=== PATIENT | female | born 1955 | race Caucasian/White ===

== ENCOUNTER 2024-11-18 10:39 | Outpatient (AMB) | payer BC, SELFPAY ==
--- OUTSIDE RECORDS SUMMARY | 2024-02-13 13:59 | XMS_ITS | Encounter Summary ---
Author Organization Meetup Address [address] [place] [address] Care Team Providers Care Casual Shoe Inspector Name Role Phone Zhanna Fraire MD Primary Care Provider Encounter Details Date Type Department Care Team (Latest Contact Info) Description 02/13/2024 1:59 PM EDT Hospital Encounter TH HISTORIC ENCOUNTERS [facility] ONLY Zhanna Fraire MD [address] [facility] [address] [place] [address] Pain in left hip Social History Tobacco Use Types Packs/Day Years Used Date Smoking Tobacco: Former Smokeless Tobacco: Never Alcohol Use Standard Drinks/Week Comments Yes 0 (1 standard drink = 0.6 oz pur e alcohol) Housing Instability Answer Date Recorde d Are you worried that in the next 2 months you may not have stable housing? Patient declined 08/05/2024 Food Access & Nutrition Answer Date Rec orded Do you have access to a vari ety of food including fruits and vegetables? Yes 08/05/2024 Access to Healthcare Answer Date Record ed Within the last 3 months, conchis schwab many times did you visit the emergency department for your medical care? 0 08/05/2024 Health Literacy Answer Date Recorded How often do you need to hav e someone help you when you read instructions, pamphlets, or other written material from your doctor or pharmacy? Rarely 08/05/2024 Caregiver: How often do you need to have someone help you when you read instructions, pamphlets, or other written material from your doctor or pharmacy? Not on file 08/05/2024 Financial Risk Answer Date Recorded How hard is it for you to pa y for the very basics like food, housing, medical care, and air conditioning / heating? Not very hard 08/05/2024 Transportation Answer Date Recorded Has the lack of transportati on kept you from meetings, work, or from getting things needed for daily living? No Has the lack of transportati on kept you from medical appointments or from getting medications? No 08/05/2024 Social Isolation Answer Date Recorded How often do you feel lonely or isolated from th ose around you? Never 08/05/2024 Food Risk Answer Date Recorded Within the past 12 months we worried whether our food would run out before we got money to buy more. Never true 08/05/2024 Within the past 12 months th e food we bought just didn't last and we didn't have money to get more. Never true 08/05/2024 Dependent Care Answer Date Recorded Do you need help finding or paying for care for your loved ones. For example, child day care center worker or elderly care for an older adult? No 08/05/2024 Education Answer Date Recorded Do you think completing more education or training, like finishing a GED, going to college, or learning a trade, would be helpful for you? N/A 08/05/2024 Employment and Income Answer Date Recor ded During the last four weeks, have you been actively looking for work? No 08/05/2024 Living Situation Answer Date Recorded What is your living situation? 0 08/05/2024 Comments Unknown Sex and Gender Information Value Date Recorded Sex Assigned at Female 03/24/2024 1:41 PM EST Legal Sex Female 10:20 AM EST Gender Identity Female 03/24/2024 1:41 PM EST Sexual Orientation Choose not to disclose 2023 1:41 PM EST documented as of this encounter Plan of Treatment Upcoming Encounters Date Type Department Care Team (Late st Contact Info) Description 12/20/2024 2:00 PM EDT Office Visit Internal Medicine - [address] [place] [address] Zhanna Fraire MD [address] [place] [address] [address] [place] [address] (work) documented as of this encounter Procedures Procedure Name Priority Date/Time Associated Diagnosis Comments CR HIP UNI 2-3 VIEWS LT Routine 02/13/2024 2:34 PM EDT Pain in left hip documented in this encounter Results * CR HIP UNI 2-3 VIEWS LT (02/13/2024 2:34 PM EDT) Anatomical Region Laterality Modality Radiographic Nikki ging 02/13/2024 2:03 PM EDT Narrative 02/13/2024 2:34 PM EDT [facility] Diagnostic Imaging Department [address] [place] [address] Patient: DONNY BERNSTEIN Tonia /Age/Sex: 1955 - 68 - F Unit#: [id number] Location/Status: SPDIGEN/REG CLI Mnemonic/Ordering [facility] Ordering Physician: ZHANNA FRAIRE MD CR Hip Uni 2-3 Views LT - 02/13/24 - [id number] Report Status:Signed History: Left hip pain. Comparison: CT abdomen/pelvis 01/01/07 Findings: An AP view of the pelvis to include both hips and AP and frog-leg lateral views of the left hip are submitted. The hip joints are well-maintained. Femoral head contours are smooth. No fractures or osseous destructive lesions are seen. There is no significant arthritic change. A 6 mm amorphous calcification is seen within the soft tissues adjacent to the cephalad aspect of the greater trochanter of the left hip, suggesting calcific bursitis. This new from the 2006 study. The pelvic bones are intact. Osteitis condensans pubis is noted. The sacroiliac joints are well-maintained. Lumbar disc and facet degenerative changes are partially imaged. Impression: Calcific bursitis left hip. [id number] Dictating Physician: LEXIS AGUILAR MD Electronically Signed by: LEXIS AGUILAR MD Dic Date/Time: 02/13/24 1432 Sign date/Time: 02/13/24 143 Procedure Note Lexis Aguilar MD - 03/09/2024 [facility] Diagnostic Imaging Department [address] [place], [place] [id number] Patient: DONNY BERNSTEIN Tonia /Age/Sex: 1955 - 68 - F Unit#: [id number] Location/Status: SPDIGEN/REG CLI Mnemonic/Ordering [facility] Ordering Physician: ZHANNA FRAIRE MD CR Hip Uni 2-3 Views LT - 02/13/24 - [id number] Report Status:Signed History: Left hip pain. Comparison: CT abdomen/pelvis 01/01/07 Findings: An AP view of the pelvis to include both hips and AP and frog-leg lateralviews of the left hip are submitted. The hip joints are well-maintained. Femoral head contours are smooth. No fractures or osseous destructive lesions are seen. There is nosignificant arthritic change. A 6 mm amorphous calcification is seen within the soft tissues adjacent tothe cephalad aspect of the greater trochanter of the left hip, suggestingcalcific bursitis. This new from the 2006 study. The pelvic bones are intact. Osteitis condensans pubis is noted. Thesacroiliac joints are well-maintained. Lumbar disc and facet degenerative changes are partially imaged. Impression: Calcific bursitis left hip. [id number] Dictating Physician: LEXIS AGUILAR MD Electronically Signed by: LEXIS AGUILAR MD Dic Date/Time: 02/13/24 1432 Sign date/Time: 02/13/24 1434 Zhanna Fraire MD IMG XR PROCEDURES Final Result documented in this encounter Visit Diagnoses Diagnosis Pain in left hip documented in this encounter Care Teams Casual Shoe Inspector Relationship Specialty Start Date End Date Zhanna Fraire MD PCP - General Internal Medicine 09/03/18 03/23/24 documented as of this encounter
--- NOTE | 2024-11-18 10:56 | MHC.OFFVIS ---
Intake Visit Reasons: syncope Allergies No Known Allergies Allergy (Verified 11/18/24 09:19) Medication List - Last Reconciled 11/18/24 by Amber Bentley MD amitriptyline 25 mg PO BEDTIME buspirone 15 mg PO TID estradiol 10 mcg vaginal 2XW latanoprost 0.005% 1 drp ophthalmic (eye) QPM lisinopril 10 mg PO DAILY omeprazole 40 mg PO DAILY rosuvastatin 20 mg PO DAILY timolol maleate 0.5% 1 drp ophthalmic (eye) QAM zolpidem 5 mg PO BEDTIME PRN HPI Comments Details: 69 yo woman with anxiety and dyspepsia had a right leg cramp at night when she got up and tried to move her leg. At one point, she tried to go back to bed when something happened. Next things she knew, she was on the floor, fallen, vomited everywhere, and had passed out. She sustained multiple facial injuries and was taken to [facility] where no etiology was found. [facility] Medical History (Updated 11/18/24 @ 11:06 by Amber Bentley MD) Hypertension Functional dyspepsia Vertigo Chiari I malformation Review of Systems Const Details: Constitutional:?No fever, chills, fatigue, weight loss, or night sweats. HEENT:?No headache, vision changes, hearing loss, nasal congestion, sore throat. Neurological:?No dizziness, syncope, seizures, numbness, tingling, weakness, tremors, memory loss. Psychiatric:?No anxiety, depression, mood swings, sleep disturbance, or hallucinations. Endocrine:?No heat/cold intolerance, polydipsia, polyuria, or hair/skin changes. Hematologic/Lymphatic:?No easy bruising, bleeding, or lymphadenopathy. Integumentary (Skin):?No rash, lesions, itching, or color changes. ? Physical Exam Neuro Other: Mental Status: Alert and oriented to person, place, and time. Normal attention. Normal spontaneous speech, fluency, and comprehension. No obvious issues with mood and memory. Affect is appropriate. Cranial Nerves: CN II: Visual gonzalez full to confrontation, visual acuity intact. CN III, IV, : Pupils equal, round, reactive to light and accommodation. Extraocular movements are normal. CN V: Facial sensation is normal. CN VII: Facial movements symmetrical. CN VIII: Hearing intact to bedside conversation is normal. CN IX, X: Palate elevates symmetrically. CN XI: Shoulder shrug and head turn symmetrical. CN XII: Tongue midline without atrophy or fasciculations. Extrapyramidal: Full facial expressions and blinking. No rigidity. Movements are appropriate with no tremor or abnormality. Speech: Normal; no dysarthria or tremor. Assessment & Plan Assessment & Plan (1) Syncope and collapse: Comment: EEG at off in October 2024: WNL CT brain at [facility] in September 2024: [facility] Code(s): R55 - Syncope and collapse Category: Medical Plan Impression: Syncope, unclear etiology Rec: PRN testing with [facility] EEG if any further symptoms w/o any other explanation. We also talked about possibility of amitriptyline resulting in side-effects for age. She could do an experiment by either decreasing the dose or stopping amitriptyline for couple of weeks to see if she would feel better. Coding Level of Care Code Tele Est Pt Level 4 (70062) Diagnoses Syncope and collapse R55
== END 2024-11-18 11:15 | disposition home or self-care (01) ==
LOC: HO.HSM 10:40
PROVIDERS: PCP Internal Medicine; Visit Provider Psychiatry & Neurology Neurology
DX: R55 Syncope and collapse (principal)
CPT/HCPCS: 99213